=== PATIENT | male | born 1990 | race African-American/Black ===

== ENCOUNTER 2016-10-12 10:38 | Emergency (ER) | payer SELFPAY ==
[~2016-10-12] VITALS: Ht 188 cm; Wt 93.0 kg
[2016-10-12 11:56] LABS: BILIRUBIN,URINE SMALL (NEG); GLUCOSE,URINE NEGATIVE (NEG); NITRITE,URINE NEGATIVE (NEG); PROTEIN,URINE NEGATIVE (NEG-TRACE)
[2016-10-12 12:08] LABS: BACTERIA,URINE FEW /HPF (0-FEW); RBC,URINE RARE /HPF (0-2); SQUAMOUS EPITHELIAL CELL,UR OCC /LPF
--- NOTE | 2016-10-12 12:16 | RAD ---
Indication left-sided posterior pain for 3 days. Cough. PA and lateral views of the chest were obtained. Comparison is made to an examination 08/12/2013. The heart and pulmonary vessels appear normal. The lungs are clear. There is no pleural fluid or pneumothorax. There has not been a significant change in the appearance of the chest compared to the previous exam. IMPRESSION: No acute or focal process. No significant change
[2016-10-12] MEDS ORDERED: ORPH100T PO (12:35)
[2016-10-12] MEDS ORDERED: HYDR-971 PO (12:35)
--- NOTE | 2016-10-12 12:35 | PHYS DOC ---
Past Medical History Past Medical History: No Pertinent History Past Surgical History: No Surgical History Alcohol Use: Occasionally Drug Use: Marijuana Adult General Chief Complaint Chief Complaint: BACK PAIN - NO INJURY [facility] HPI Patient is a 25 year old male presents emergency room Department today with complaint of left mid back pain that is atraumatic in nature been ongoing for the past 4-5 days. Patient reports he is also been incurring a nonproductive cough. He denies shortness of breath. Patient denies any history of cardiopulmonary disease. He denies any history of spinal cord or spinal column injuries. He denies antibiotic use within the past 30 days. Patient also denies any dysuria, hematuria or penile discharge. Review of Systems Review of Systems Constitutional: Denies fever or chills [] Eyes: Denies change in visual acuity, redness, or eye pain [] HENT: Denies nasal congestion or sore throat [] Respiratory: Denies cough or shortness of breath [] Cardiovascular: No additional information not addressed in HPI [] GI: Denies abdominal pain, nausea, vomiting, bloody stools or diarrhea [] : Denies dysuria or hematuria [] Musculoskeletal: Denies back pain or joint pain [] Integument: Denies rash or skin lesions [] Neurologic: Denies headache, focal weakness or sensory changes [] Endocrine: Denies polyuria or polydipsia [] Allergies Allergies Allergies Coded Allergies Type Severity Reaction Last Updated Verified No Known Drug Allergies 08/17/15 No Physical Exam Physical Exam Constitutional: Well developed, well nourished, no acute distress, non-toxic appearance. [] HENT: Normocephalic, atraumatic, bilateral external ears normal, oropharynx moist, no oral exudates, nose normal. [] Eyes: PERRLA, EOMI, conjunctiva normal, no discharge. [] Neck: Normal range of motion, no tenderness, supple, no stridor. [] Cardiovascular:Heart rate regular rhythm, no murmur [] Lungs & Thorax: Bilateral breath sounds clear to auscultation Abdomen: Bowel sounds normal, soft, no tenderness, no masses, no pulsatile masses. [] Skin: Warm, dry, no erythema, no rash. [] Back: There is no CVA tenderness. There are no lesions overlying the patient's left mid back. There is tenderness to palpation to the left paraspinous soft tissues radiating laterally without palpable defect or deformity. Extremities: No tenderness, no cyanosis, no clubbing, ROM intact, no edema. [] Neurologic: Alert and oriented X 3, normal motor function, normal sensory function, no focal deficits noted. [] Psychologic: Affect normal, judgement normal, mood normal. [] Current Patient Data Vital Signs Vital Signs Date Time Temp Pulse Resp B/P Pulse Ox O2 Delivery O2 Flow Rate FiO2 10/12/16 12:44 68 16 121/62 98 Room Air 10/12/16 11:01 98.5 98.5 Lab Values Laboratory Tests Test 10/12/16 11:39 Urine Collection Type Unknown Urine Color Yellow Urine Clarity Clear Urine pH 6.0 Urine Specific [place] 1.025 Urine Protein Negativemg/dL (NEG-TRACE) Urine Glucose (UA) Negativemg/dL (NEG) Urine Ketones (Stick) 40mg/dL (NEG) Urine Blood Negative (NEG) Urine Nitrite Negative (NEG) Urine Bilirubin Small (NEG) Urine Urobilinogen Dipstick 1.0mg/dL (0.2 mg/dL) Urine Leukocyte Esterase Negative (NEG) Urine RBC Rare/HPF (0-2) Urine WBC 1-4/HPF (0-4) Urine Squamous Epithelial Cells Occ/LPF Urine Bacteria Few/HPF (0-FEW) Urine Mucus Marked/LPF EKG EKG [] Radiology/Procedures Radiology/Procedures PA and lateral chest x-ray are performed and interpreted by the radiologist. There is no evidence of acute intrathoracic process. Course & Med Decision Making Course & Med Decision Making Pertinent Labs and Imaging studies reviewed. (See chart for details) [] Dragon Disclaimer Dragon Disclaimer This electronic medical record was generated, in whole or in part, using a voice recognition dictation system. Departure Departure Impression: Primary Impression: Back pain Disposition: HOME, SELF-CARE Condition: GOOD Referrals: NO PCP (PCP) Patient Instructions: Back Pain, Adult, [id number] Additional Instructions: 1. Chest x-ray shows no evidence of pneumonia or collapsed lung. Urine shows no evidence of bacterial infection. 2. Take the medication as prescribed. 3. Review your discharge instructions for self-care and reasons to return the emergency department. 4. A pamphlet has been provided to you for assistance in finding a primary care doctor for you to follow up within the next 7-10 days. Scripts Orphenadrine Citrate 100 Mg Tablet.er100 Mg PO Q12HR #14 Prov:BABATUNDE VELAZCO 10/12/16 Hydrocodone/Apap 5-325 ([place] 5-325 Tablet)1 Each Tablet1 Tab PO PRN Q6HRS PRN PAIN #10 TAB Prov:BABATUNDE VELAZCO 10/12/16 Problem Qualifiers Primary Impression: Back pain Back pain location: thoracic back pain Chronicity: acute Back pain laterality: left Qualified Code: M54.6 - Pain in thoracic spine BABATUNDE VELAZCO Oct 12, 2016 12:35
[2016-10-12 12:44] VITALS: BP 121/62
== END 2016-10-12 12:45 | disposition home or self-care (01) ==
LOC: ER 10:38
DX: M54.6 Pain in thoracic spine (principal); R05 Cough; F12.10 Cannabis abuse, uncomplicated
CPT/HCPCS: 71020; 81001; 99285-25

== ENCOUNTER 2016-12-13 08:46 | Emergency (ER) | payer SELFPAY ==
[~2016-12-13] VITALS: Ht 188 cm; Wt 93.0 kg
[~2016-12-13 08:46] MED LIST: HYDR-971 PO; ORPH100T PO
[2016-12-13 09:13] VITALS: BP 135/83
--- NOTE | 2016-12-13 09:13 | PHYS DOC ---
Past Medical History Past Medical History: No Pertinent History Past Surgical History: No Surgical History Alcohol Use: Occasionally Drug Use: Marijuana Adult General Chief Complaint Chief Complaint: SEXUALLY TRANSMITTED DISEASE HPI HPI Patient is a 26 year old male who presents with STD concern. Patient states he has had dysuria for a couple days, he states he has had unprotected sex and he is concerned he could have an STD. He would like to be tested and treated. Review of Systems Review of Systems Constitutional: Denies fever or chills [] : Dysuria and STD concern Musculoskeletal: Denies back pain or joint pain [] Integument: Denies rash or skin lesions [] Neurologic: Denies headache, focal weakness or sensory changes [] Endocrine: Denies polyuria or polydipsia [] Current Medications Current Medications Current Medications Medications (Trade) Dose Ordered Sig/Jo Start Time Stop Time Status Last Admin Dose Admin Azithromycin (Zithromax) 1,000 mg 1X ONCE 12/13/16 09:15 12/13/16 09:16 Ceftriaxone Sodium (Rocephin Im) 250 mg 1X ONCE 12/13/16 09:15 12/13/16 09:16 Metronidazole (Flagyl) 2,000 mg 1X ONCE 12/13/16 09:15 12/13/16 09:16 Allergies Allergies Allergies Coded Allergies Type Severity Reaction Last Updated Verified No Known Drug Allergies 08/17/15 No Physical Exam Physical Exam Constitutional: Well developed, well nourished, no acute distress, non-toxic appearance. [] Abdomen: Bowel sounds normal, soft, no tenderness, no masses, no pulsatile masses. [] Skin: Warm, dry, no erythema, no rash. [] Back: No tenderness, no CVA tenderness. [] Extremities: No tenderness, no cyanosis, no clubbing, ROM intact, no edema. [] Neurologic: Alert and oriented X 3, normal motor function, normal sensory function, no focal deficits noted. [] Psychologic: Affect normal, judgement normal, mood normal. [] EKG EKG [] Radiology/Procedures Radiology/Procedures [] Course & Med Decision Making Course & Med Decision Making Pertinent Labs and Imaging studies reviewed. (See chart for details) Patient is in the ED for STD concern. His urine was sent to lab. He was given Flagyl azithromycin and Rocephin. Was provided STD education. Follow-up with the health department. Dragon Disclaimer Dragon Disclaimer This electronic medical record was generated, in whole or in part, using a voice recognition dictation system. Departure Departure Impression: Primary Impression: Concern about STD in male without diagnosis Disposition: 01 HOME, SELF-CARE Condition: STABLE Referrals: NO PCP (PCP) Follow-up with your own doctor or the health department in a week if you have concerns for STD Patient Instructions: Sexually Transmitted Disease Additional Instructions: You were seen for STD concern. You were treated in the ED. We did send your urine to lab for STDs testing. We will call you if your results are positive. Do not have sex for a week. Use protection at all times. Contact all your sex partners, let them know you were treated for STDs and ask them to seek treatment too. LORENA FAYE APRN Dec 13, 2016 09:13
[2016-12-13] MEDS ORDERED: METRONIDAZOLE 500 MG TABLET. PO ONE (09:15)
[2016-12-13] MEDS ORDERED: AZITHROMYCIN 250 MG TABLET PO ONE (09:15)
[2016-12-13] MEDS ORDERED: CEFTRIAXONE IM 250 MG VIAL. IM ONE (09:15)
[2016-12-13 09:39] LABS: BILIRUBIN,URINE NEGATIVE (NEG); GLUCOSE,URINE NEGATIVE (NEG); NITRITE,URINE NEGATIVE (NEG); PROTEIN,URINE NEGATIVE (NEG-TRACE); UROBILINOGEN,URINE 0.2 mg/dL (0.2 mg/dL)
[2016-12-13 09:49] LABS: BACTERIA,URINE 0 /HPF (0-FEW); RBC,URINE 0 /HPF (0-2); SQUAMOUS EPITHELIAL CELL,UR FEW /LPF; WBC,URINE 0 /HPF (0-4)
== END 2016-12-13 09:53 | disposition home or self-care (01) ==
LOC: ER 08:46
DX: Z11.3 Encounter for screening for infections with a predominantly sexual mode of transmission (principal); F12.10 Cannabis abuse, uncomplicated
CPT/HCPCS: 81001; 87491; 87591; 96372; 99284; J0696; Q0144

== ENCOUNTER 2018-02-22 13:40 | Emergency (ER) | payer SELFPAY ==
[2018-02-22] MEDS: DEXAMETHASONE SOD PHOS 20 MG/5 ML VIAL. IM (14:45)
[2018-02-22] MEDS: KETOROLAC 60 MG/2 ML INJ. IM (14:45)
[2018-02-22] MEDS: ONDANSETRON ODT 4 MG TAB.RAPDIS. PO (14:45)
[2018-02-22] MEDS: LIDOCAINE 2% VISCOUS 15 ML SOLUTION. SWSW (14:45)
== END 2018-02-22 15:10 | disposition home or self-care (01) ==
LOC: ER 15:10
DX: G43.909 Migraine, unspecified, not intractable, without status migrainosus (principal); J02.9 Acute pharyngitis, unspecified; F12.10 Cannabis abuse, uncomplicated
CPT/HCPCS: 96372; 99284; J1100; J1885; Q0162

== ENCOUNTER 2018-05-31 12:36 | Emergency (ER) | payer SELFPAY ==
[~2018-05-31] VITALS: Ht 188 cm; Wt 88.5 kg
[~2018-05-31 12:36] MED LIST changes: +ACET325T9 PO; +AMOX500T PO; +PRED50TA PO; +TRAM50TA PO
[2018-05-31 13:15] VITALS: BP 114/73
[2018-05-31] MEDS ORDERED: CLIN300C8 PO (14:09)
--- NOTE | 2018-05-31 14:13 | PHYS DOC ---
Past Medical History Past Medical History: No Pertinent History Past Surgical History: No Surgical History Alcohol Use: None Drug Use: None Adult General Chief Complaint Chief Complaint: ABSCESS HPI HPI Patient is a 27 year old male who presents with a left buttock abscess that has been there for 5 days. Patient also has a dime sized red abscess to the left groin. Patient denies fever. Review of Systems Review of Systems Constitutional: Denies fever or chills [] Eyes: Denies change in visual acuity, redness, or eye pain [] HENT: Denies nasal congestion or sore throat [] Respiratory: Denies cough or shortness of breath [] Cardiovascular: No additional information not addressed in HPI [] GI: Denies abdominal pain, nausea, vomiting, bloody stools or diarrhea [] : Denies dysuria or hematuria [] Musculoskeletal: Denies back pain or joint pain [] Integument: Denies rash or skin lesions. Left buttock abscess that is large red and nondraining. Left groin abscess that is dime sized and nondraining. [] Neurologic: Denies headache, focal weakness or sensory changes [] Endocrine: Denies polyuria or polydipsia [] All other systems were reviewed and found to be within normal limits, except as documented in this note. Current Medications Current Medications Current Medications Medications (Trade) Dose Ordered Sig/[facility] Start Time Stop Time Status Last Admin Dose Admin Lidocaine/Sodium Bicarbonate (Buffered Lidocaine 1%) 3 ml 1X ONCE 05/31/18 14:15 05/31/18 14:16 DC 05/31/18 14:15 3 ML Allergies Allergies Allergies Coded Allergies Type Severity Reaction Last Updated Verified No Known Drug Allergies 08/17/15 No Physical Exam Physical Exam Constitutional: Well developed, well nourished, no acute distress, non-toxic appearance. [] HENT: Normocephalic, atraumatic, bilateral external ears normal, oropharynx moist, no oral exudates, nose normal. [] Eyes: PERRLA, EOMI, conjunctiva normal, no discharge. [] Neck: Normal range of motion, no tenderness, supple, no stridor. [] Cardiovascular:Heart rate regular rhythm, no murmur [] Lungs & Thorax: Bilateral breath sounds clear to auscultation [] Abdomen: Bowel sounds normal, soft, no tenderness, no masses, no pulsatile masses. [] Skin: Warm, dry, no erythema, no rash. [] Back: No tenderness, no CVA tenderness. [] Extremities: No tenderness, no cyanosis, no clubbing, ROM intact, no edema. [] Neurologic: Alert and oriented X 3, normal motor function, normal sensory function, no focal deficits noted. [] Psychologic: Affect normal, judgement normal, mood normal. [] Current Patient Data Vital Signs Vital Signs Date Time Temp Pulse Resp B/P (MAP) Pulse Ox O2 Delivery O2 Flow Rate FiO2 05/31/18 13:15 98.4 91 18 114/73 (87) 97 Room Air 98.4 EKG EKG [] Radiology/Procedures Radiology/Procedures [] Course & Med Decision Making Course & Med Decision Making Patient is a 27 year old male who presents with a left buttock abscess that has been there for 5 days. Patient also has a dime sized red abscess to the left groin. Patient rates his pain at a 8/10. Patient denies fever. Patient is alert and oriented. Patient left buttock abscess is numbed with lidocaine and opened with a 11 blade. There was a large amount of foul smelling purulent drainage. The wound is packed and the patient should follow up here or with his Primary care doctor within 5-7 days. The abscess is packed with iodoform and dressed. Patient is sent home with [place] and Clindamycin. [] Dragon Disclaimer Dragon Disclaimer This electronic medical record was generated, in whole or in part, using a voice recognition dictation system. Departure Departure Impression: Primary Impression: Abscess Disposition: HOME, SELF-CARE Condition: STABLE Referrals: NO PCP (PCP) Patient Instructions: Abscess, Abscess, Care After Additional Instructions: Follow up here or with her primary care for further evaluation within 5 days. Take medications as prescribed. Scripts Hydrocodone/Apap 5-325 ([place] 5-325 TABLET) 1 Each Tablet 1 TAB PO PRN Q6HRS PRN for PAIN, #6 TAB 0 Refills Prov: MICAELA SPANN APRN 05/31/18 Clindamycin Hcl (CLINDAMYCIN HCL) 300 Mg Capsule 1 CAP PO TID, #21 CAP Prov: MICAELA SPANN APRN 05/31/18 MICAELA SPANN APRN May 31, 2018 14:13
[2018-05-31] MEDS ORDERED: LIDOCAINE WITH 8.4% SOD BICARB 3 ML DISP.SYRIN. INJ ONE (14:15)
[2018-05-31] MEDS ORDERED: HYDR-971 PO (14:17)
== END 2018-05-31 14:59 | disposition home or self-care (01) ==
LOC: ER 12:36
DX: L02.31 Cutaneous abscess of buttock (principal); L02.214 Cutaneous abscess of groin
CPT/HCPCS: 10060; 99283

== ENCOUNTER 2019-11-29 12:30 | Emergency (ER) | payer SELFPAY ==
[~2019-11-29] VITALS: Ht 188 cm; Wt 97.2 kg
[~2019-11-29 12:30] MED LIST changes: +CLIN300C8 PO; +HYDR-3164 PO; -HYDR-971 PO
[2019-11-29 12:58] VITALS: BP 122/69
--- NOTE | 2019-11-29 13:06 | PHYS DOC ---
Past Medical History Past Medical History: No Pertinent History Past Surgical History: No Surgical History Smoking Status: Current Every Day Smoker Alcohol Use: None Drug Use: None Adult General Chief Complaint Chief Complaint: SEXUALLY TRANSMITTED DISEASE HPI HPI Patient is a 29 year old male patient who presents to the ED today complaining of STD exposure, patient reports that his significant other tested positive for chlamydia and he would like to be treated. Patient denies any symptoms Review of Systems Review of Systems Constitutional: Denies fever or chills [] : Reports STD concern. Denies dysuria or hematuria [] Musculoskeletal: Denies back pain or joint pain [] Integument: Denies rash or skin lesions [] Neurologic: Denies headache, focal weakness or sensory changes [] All other systems were reviewed and found to be within normal limits, except as documented in this note. Allergies Allergies Allergies Coded Allergies Type Severity Reaction Last Updated Verified No Known Drug Allergies 08/17/15 No Physical Exam Physical Exam Constitutional: Well developed, well nourished, no acute distress, non-toxic appearance. [] Skin: Warm, dry, no erythema, no rash. [] Back: No tenderness, no CVA tenderness. [] Extremities: No tenderness, no cyanosis, no clubbing, ROM intact, no edema. [] Neurologic: Alert and oriented X 3, normal motor function, normal sensory function, no focal deficits noted. [] Psychologic: Affect normal, judgement normal, mood normal. [] Current Patient Data Vital Signs Vital Signs Date Time Temp Pulse Resp B/P (MAP) Pulse Ox O2 Delivery O2 Flow Rate FiO2 11/29/19 12:58 97.9 75 16 122/69 (86) 97 Room Air 97.9 EKG EKG [] Radiology/Procedures Radiology/Procedures [] Course & Med Decision Making Course & Med Decision Making Pertinent Labs and Imaging studies reviewed. (See chart for details) This is a 29-year-old male patient presenting to the ED today with STD concern. Patient was treated. Education provided. Marlon Disclaimer Marlon Disclaimer This electronic medical record was generated, in whole or in part, using a voice recognition dictation system. Departure Departure Impression: Primary Impression: Concern about STD in male without diagnosis Disposition: 01 HOME, SELF-CARE Condition: STABLE Referrals: NO PCP (PCP) Follow-up with the health department for further STD concerns Patient Instructions: Sexually Transmitted Disease, [id number] Additional Instructions: You were treated for sexually transmitted diseases. Use protection at all t imes. No sex for 1 week. Follow-up with the health department for further STD concerns LORENA FAYE APRN Nov 29, 2019 13:06
[2019-11-29] MEDS ORDERED: metroNIDAZOLE 500 MG TABLET PO ONE (13:15)
[2019-11-29] MEDS ORDERED: cefTRIAXone IM 250 MG VIAL IM ONE (13:15)
[2019-11-29] MEDS ORDERED: AZITHROMYCIN 250 MG TABLET. PO ONE (13:15)
== END 2019-11-29 13:17 | disposition home or self-care (01) ==
LOC: ER 12:30
DX: Z20.2 Contact with and (suspected) exposure to infections with a predominantly sexual mode of transmission (principal); F17.200 Nicotine dependence, unspecified, uncomplicated
CPT/HCPCS: 96372; 99283; J0696

== ENCOUNTER 2020-08-10 09:36 | Emergency (ER) | payer SELFPAY ==
[~2020-08-10] VITALS: Ht 188 cm; Wt 92.4 kg
[2020-08-10] MEDS ORDERED: BUTALB/APAP/CAFEIN 50/325/40MG TABLET. PO ONE (11:00)
[2020-08-10] MEDS ORDERED: KETOROLAC 30 MG/ML VIAL. IM ONE (11:00)
[2020-08-10] MEDS ORDERED: BUTA1TAB23 PO (11:00)
[2020-08-10] MEDS ORDERED: DEXAMETHASONE 4 MG TABLET PO ONE (11:00)
[2020-08-10] MEDS ORDERED: PRED20TA PO (11:00)
--- NOTE | 2020-08-10 11:00 | PHYS DOC ---
Past Medical History Past Medical History: Migraines Past Surgical History: No Surgical History Smoking Status: Current Every Day Smoker Additional Information: 5-6 cigarettes daily Alcohol Use: Heavy Additional Information: reports drinking beer every other day Drug Use: None General Adult EDM: Chief Complaint: HEADACHE HPI: HPI: Patient is a 29 year old male who presents with headache. Patient has history of migraines since childhood. Does not take daily migraine prevention or abortive medications. Migraines normally last 12-24 hours but current one has lasted for 5 days. Has tried ibuprofen, tylenol, and BC powder at home with no success. Reports photophobia. Pain is a 8/10 and described as throbbing/tenderness around left eye. Review of Systems: Review of Systems: Constitutional: Denies fever or chills Eyes: Denies redness, reports pain surrounding L eye HENT: Denies sore throat, reports nasal congestion Respiratory: Denies cough or shortness of breath Cardiovascular: Denies chest pain or palpitations GI: Denies abdominal pain, nausea, or vomiting : Denies dysuria or hematuria Musculoskeletal: Denies back pain or joint pain, denies neck pain Integument: Denies rash or skin lesions Neurologic: Denies headache, focal weakness or sensory changes Complete systems were reviewed and found to be within normal limits, except as documented in this note. Current Medications: Current Medications Medications (Trade) Dose Ordered Sig/Jo Start Time Stop Time Status Last Admin Dose Admin Acetaminophen/ Butalbital/ Caffeine (Fioricet) 1 tab 1X ONCE 08/10/20 11:00 08/10/20 11:01 UNV Dexamethasone (Decadron) 10 mg 1X ONCE 08/10/20 11:00 08/10/20 11:01 UNV Allergies: Allergies: Allergies Coded Allergies Type Severity Reaction Last Updated Verified No Known Drug Allergies 08/10/20 No Physical Exam: PE: Constitutional: Well developed, well nourished, no acute distress, non-toxic appearance HENT: Normocephalic, atraumatic Eyes: PERRL, EOMI, conjunctiva normal, no discharge, tenderness to palpation over L maxillary and frontal sinuses, photophobia Neck: Normal range of motion, no tenderness, supple, no meningitic signs Lungs & Thorax: No respiratory distress, equal chest rise and fall Abdomen: Soft, no tenderness Skin: Warm, dry, no erythema, no rash Back: No tenderness, no CVA tenderness Extremities: No tenderness, ROM intact, no edema Neurologic: Alert and oriented X 3, normal motor function, normal sensory function, no focal deficits noted Psychologic: Affect normal, judgment normal Current Patient Data: Vital Signs: Vital Signs Date Time Temp Pulse Resp B/P (MAP) Pulse Ox O2 Delivery O2 Flow Rate FiO2 08/10/20 10:10 97.5 66 16 122/90 (101) 98 Room Air 97.5 Course & Med Decision Making: Course & Med Decision Making Based on history of chronic migraines and current presentation, highly suspicious of migraine. No imaging performed. No labs drawn. Given steroid and combination analgesic. Prescribed steroid and analgesic. Patient stable for discharge with outpatient follow-up with PCP. Discussed findings and plan with patient, who acknowledges understanding and agreement. Marlon Disclaimer: Marlon Disclaimer: This electronic medical record was generated, in whole or in part, using a voice recognition dictation system. Departure Departure Impression: Primary Impression: Headache Qualified Codes: R51.9 - Headache, unspecified Disposition: 01 DC HOME SELF CARE/HOMELESS Condition: STABLE Referrals: NO PCP (PCP) JAMES ROMERO MD Patient Instructions: Headache, FAQs, Migraine Headache, [id number] Scripts Prednisone (PREDNISONE) 20 Mg Tablet 2 TAB PO DAILY, #10 TAB Prov: BROCK ARCEO DO 08/10/20 Butalb/Acetaminophen/Caffeine ([id number] 50-325-40) 1 Each Tablet 1 EACH PO Q6HRS PRN for HEADACHE, #10 TAB Prov: BROCK ARCEO DO 08/10/20 BROCK ARCEO DO Aug 10, 2020 11:00
[2020-08-10 11:29] VITALS: BP 120/77
== END 2020-08-10 11:32 | disposition home or self-care (01) ==
LOC: ER 09:36
DX: G43.909 Migraine, unspecified, not intractable, without status migrainosus (principal); F17.200 Nicotine dependence, unspecified, uncomplicated; F10.10 Alcohol abuse, uncomplicated
CPT/HCPCS: 96372; 99283; J1885

== ENCOUNTER 2021-02-23 07:42 | Emergency (ER) | payer SELFPAY ==
[~2021-02-23] VITALS: Ht 188 cm; Wt 93.0 kg
[~2021-02-23 07:42] MED LIST changes: +BUTA1TAB23 PO; -CLIN300C8 PO; +CLIN300C9 PO; +PRED20TA PO
[2021-02-23 07:44] VITALS: BP 125/79
[2021-02-23 08:07] LABS: BILIRUBIN,URINE NEGATIVE (NEG); CLARITY,URINE CLEAR; COLOR,URINE YELLOW; NITRITE,URINE NEGATIVE (NEG); PH,URINE 5.5 (<5.0-8.0); PROTEIN,URINE NEGATIVE (NEG-TRACE); UROBILINOGEN,URINE 0.2 mg/dL (0.2 mg/dL)
[2021-02-23 08:11] LABS: WBC,URINE TNTC /HPF (0-4)
[2021-02-23 08:12] LABS: BACTERIA,URINE FEW /HPF (0-FEW)
[2021-02-23] MEDS ORDERED: cefTRIAXone IM 500 MG VIAL. IM ONE (08:45)
[2021-02-23] MEDS ORDERED: DOXY100C2 PO (08:57)
--- NOTE | 2021-02-23 09:00 | PHYS DOC ---
Past Medical History Past Medical History: Migraines Past Surgical History: No Surgical History Smoking Status: Current Every Day Smoker Alcohol Use: Heavy Drug Use: None General Adult EDM: Chief Complaint: SEXUALLY TRANSMITTED DISEASE HPI: HPI: 30-year-old male with no significant past medical history presents the ED with complaints of dysuria and urethral discharge for the past 2 days. Reports female unprotected partner with vaginal intercourse. History of prior similar symptoms with treatment a few years ago. Has no routine primary physician. Denies any associated rash, pain or swelling. Does not believe he has ever been tested for blood-borne illnesses. Review of Systems: Review of Systems: Constitutional: Denies fever or chills. [] Eyes: Denies change in visual acuity. [] HENT: Denies nasal congestion or sore throat. [] Respiratory: Denies cough or shortness of breath. [] Cardiovascular: Denies chest pain or edema. [] GI: Denies nausea, vomiting, : Denies hematuria or flank pain Musculoskeletal: Denies back pain or joint pain. [] Integument: Denies rash or ulcers Neurologic: Denies headache, or neck stiffness Endocrine: Denies polyuria or polydipsia. [] Psychiatric: Denies depression or anxiety. [] Heart Score: C/O Chest Pain: No Risk Factors: Risk Factors: DM, Current or recent (<one month) smoker, HTN, HLP, family histo ry of CAD, obesity. Risk Scores: Score 0 - 3: 2.5% MACE over next 6 weeks - Discharge Home Score 4 - 6: 20.3% MACE over next 6 weeks - Admit for Clinical Observation Score 7 - 10: 72.7% MACE over next 6 weeks - Early Invasive Strategies Allergies: Allergies: Allergies Coded Allergies Type Severity Reaction Last Updated Verified No Known Drug Allergies 08/10/20 No Physical Exam: PE: Constitutional: Well developed, well nourished, no acute distress, non-toxic appearance. HENT: Normocephalic, atraumatic, Eyes: EOMI, conjunctiva normal, no discharge. Neck: Normal range of motion, supple, Cardiovascular: S1/2 present, regular rhythm Lungs & Thorax: Speaking in full sentences, bilateral equal chest rise, no tachypnea or increased work of breathing Abdomen: soft, no tenderness, Skin: Warm, dry, no erythema, no rash. [] Back: No tenderness, no CVA tenderness. [] Extremities: No tenderness, no cyanosis, Neurologic: Alert and oriented X 3, no focal deficits noted. [] Psychologic: Affect normal, judgement normal, mood normal. [] Current Patient Data: Labs: Laboratory Tests Test 02/23/21 07:44 Urine Collection Type Void Urine Color Yellow Urine Clarity Clear Urine pH 5.5 (<5.0-8.0) Urine Specific [place] >=1.030 (1.000-1.030) Urine Protein Negative mg/dL (NEG-TRACE) Urine Glucose (UA) Negative mg/dL (NEG) Urine Ketones (Stick) Negative mg/dL (NEG) Urine Blood Trace (NEG) Urine Nitrite Negative (NEG) Urine Bilirubin Negative (NEG) Urine Urobilinogen Dipstick 0.2 mg/dL (0.2 mg/dL) Urine Leukocyte Esterase Large (NEG) Urine RBC 3-5 /HPF (0-2) Urine WBC Tntc /HPF (0-4) Urine Squamous Epithelial Cells Few /LPF Urine Bacteria Few /HPF (0-FEW) Urine Mucus Mod /LPF Vital Signs: Vital Signs Date Time Temp Pulse Resp B/P (MAP) Pulse Ox O2 Delivery O2 Flow Rate FiO2 02/23/21 07:44 97.8 88 16 125/79 (94) 98 Room Air 97.8 EKG: EKG: [] Radiology/Procedures: Radiology/Procedures: [] Course & Med Decision Making: Course & Med Decision Making Pertinent Labs and Imaging studies reviewed. (See chart for details) History concerning for STI. Will cover for Covid and gonorrhea. Will refer to health department or PCP for blood-borne sexually transmitted infection testing. Patient well-appearing with no associated rash. Will discharge home with strict ED return precautions were given for rash, urinary retention, fever, flulike symptoms, flank pain, nausea or vomiting. Encouraged urgent outpatient follow-up with PMD for blood-borne testing. Life-threatening processes were considered but are low suspicion at this time, given history, physical exam and ED workup. Pt was educated on all prescription medications and adverse effects. All patient's questions were answered and pt was stable at time of discharge. Life/limb-threatening differential includes but is not limited to, blunt vs penetrating trauma, bladder or urethral injury or infection, penile fracture/amputation/contusion, testicular rupture or dislocation, traumatic epididymitis, or pelvic injury or fracture. I spoken with the patient and her caregivers. I explained the patient's condition, diagnoses and treatment plan based on the information available to me at this time. I have answered the patient and her caregiver's questions and addressed any concerns. The patient and her caregivers have a good understanding of patient's diagnosis, condition and treatment plan as can be expected at this point. Vital signs have been stable. Patient's condition is s table and appropriate for discharge from the emergency department. Patient will pursue further outpatient evaluation with primary care physician or other designated or consulting physician as outlined in the discharge instructions. The patient and/or caregivers are agreeable to this plan of care and follow-up instructions have been explained in detail. The patient and/or caregivers have received these instructions in written form and have expressed an understanding of the discharge instructions. The patient and/or caregivers are aware that any significant change of condition or worsening of symptoms should prompt immediate return to this or the closest emergency department or call to 911. Marlon Disclaimer: Marlon Disclaimer: This electronic medical record was generated, in whole or in part, using a voice recognition dictation system. Departure Departure Impression: Primary Impression: Encounter for assessment of STD exposure Disposition: HOME / SELF CARE / HOMELESS Condition: STABLE Referrals: NO PCP (PCP) follow up with pcp for blood borne illness testing or FOLLOW UP WITH FAMILY M EDICINE: [address], [address] [place] [address] Patient Instructions: Safe Sex, Sexuality and Disability Additional Instructions: EMERGENCY DEPARTMENT GENERAL DISCHARGE INSTRUCTIONS Thank you for coming to [facility] Emergency Department (ED) today and trusting us with you care. We trust that you had a positive experience in our Emergency Department. If you wish to speak to the department management, you may call the Director at [phone]. YOUR FOLLOW UP INSTRUCTIONS ARE FOLLOWS: 1. Do you have a private Doctor? If you do not have a private doctor, please ask for a resource list of physicians or clinics that may be able to assist you with follow up care. 2. The Emergency Physicain has interpreted your x-rays. The X-Ray specialist will also review them. If there is a change in the findings, you will be notified in 48 hours when at all possible. 3. A lab test or culture has been done, your results will be reviewed and you will be notified if you need a change in treatment. ADDITIONAL INSTRUCTIONS AND INFORMATION: 1. Your care today has been supervised by a physician who is specially trained in emergency care. Many problems require more than one evaluation for a complete diagnosis and treatment. We recommend that you schedule your follow up appointment as recomm ended to ensure complete treatment of you illness or injury. If you are unable to obtain follow up care and continue to have a problem, or if your condition worsens, we recommend that you return to the ED. 2. We are not able to safely determine your condition over the phone nor are we able to give sound medical advice over the phone. For these safety reasons, if you call for medical advice we will ask you to come to the ED for further evaluation. 3. If you have any questions regarding these discharge instructions please call the ED at [phone]. SAFETY INFORMATION: In the interest of safety, wellness, and injury prevention; we encourage you to wear your sealbelt, if you smoke; quite smoking, and we encourage family to use a protective helmet for bicycling and other sporting events that present an increased risk for head injury. IF YOUR SYMPTOMS WORSEN OR NEW SYMPTOMS DEVELOP, OR YOU HAVE CONCERNS ABOUT YOUR CONDITION; OR IF YOUR CONDITION WORSENS WHILE YOU ARE WAITING FOR YOUR FOLLOW UP APPOINTMENT; EITHER CONTACT YOUR PRIMARY CARE DOCTOR, THE PHYSICIAN WHOSE NAME AND NUMBER YOU WERE GIVEN, OR RETURN TO THE ED IMMEDIATELY. Scripts Doxycycline Hyclate (DOXYCYCLINE HYCLATE) 100 Mg Capsule 1 CAP PO BID for 7 Days, #14 CAP Prov: JESSICA GARCIA DO 02/23/21 JESSICA GARCIA DO Feb 23, 2021 09:00
== END 2021-02-23 09:11 | disposition home or self-care (01) ==
LOC: ER 07:42
DX: Z20.2 Contact with and (suspected) exposure to infections with a predominantly sexual mode of transmission (principal); G43.909 Migraine, unspecified, not intractable, without status migrainosus; F17.200 Nicotine dependence, unspecified, uncomplicated; F10.20 Alcohol dependence, uncomplicated; Y90.9 Presence of alcohol in blood, level not specified
CPT/HCPCS: 81001; 87086; 87491; 87591; 96372; 99283; J0696